=== PATIENT | female | born 1950 | race Hispanic/Latino ===

== ENCOUNTER 2021-04-05 12:07 | Outpatient (CLI) | payer MEDICARE ==
[2021-04-05 15:16] LABS: Anion Gap 12 mmol/L (10-20); BUN (Urea Nitrogen) 8 mg/dL (9.8-20.1); Calc. Creatinine Clearance 0 mL/min (70-130); Carbon Dioxide 28 mmol/L (23-31); Chloride 104 mmol/L (98-107); Glucose 113 mg/dL (83-110); Sodium 139 mmol/L (136-145)
[2021-04-05 15:21] LABS: Calcium 9.5 mg/dL (7.8-10.44)
[2021-04-05 15:49] LABS: Hemoglobin 13.3 g/dL (12.0-15.5); Mean Corpuscular HGB CONC 32.9 g/dL (32.0-36.0); Mean Corpuscular Hemoglobin 30.6 pg (27.0-33.0); Mean Corpuscular Volume 93.1 fl (81.6-98.3); Platelet Count 165 10x3/uL (150-450); Red Blood Cell (RBC) Count 4.34 10x6/uL (3.90-5.03); White Blood Cell (WBC) Count 6.3 10x3/uL (3.5-10.5)
[2021-04-06 11:14] LABS: SARS-CoV-2 PCR by NAA Not Detected (NotDetected)
== END 2021-04-05 12:08 | disposition home or self-care (01) ==
LOC: LABBT 12:07
PROVIDERS: ATTEND Orthopaedic Surgery
DX: Z01.818 Encounter for other preprocedural examination (principal); Z20.822 Contact with and (suspected) exposure to COVID-19; M21.612 Bunion of left foot
CPT/HCPCS: 80048; 85027; U0003; U0005; 93005; 93010